=== PATIENT | female | born 1995 | race Hispanic/Latino ===

== ENCOUNTER 2025-01-02 06:21 | Emergency (ER) | payer BC, OTHER ==
[2025-01-02] MEDS ORDERED: Morphine 4 MG/ML VIAL ONE (08:00)
[2025-01-02 08:48] LABS: #Basophils Less than 0.03 10x3/uL (0.0-0.2); #Eosinophils 0.05 10x3/uL (0.0-0.5); #Monocytes 0.44 10x3/uL (0.0-1.1); #Neutrophils 4.34 10x3/uL (1.5-8.4); %Basophils 0.3 % (0.0-2.0); %Eosinophils 0.7 % (0.0-6.0); %Lymphocytes 31.6 % (18.0-47.0); %Monocytes 6.2 % (0.0-10.0); %Neutrophils 60.9 % (40.0-75.0); Hematocrit 34.7 % (34.9-44.5); Hemoglobin 11.4 g/dL (12.0-15.5); Mean Corpuscular HGB CONC 32.9 g/dL (32.0-36.0); Mean Corpuscular Hemoglobin 27.8 pg (27.0-33.0); Mean Corpuscular Volume 84.6 fL (81.6-98.3); Mean Platelet Volume 9.3 fL (7.4-10.4); Platelet Count 288 10x3/uL (150-450); RBC Distribution Width 12.4 % (11.5-14.5); White Blood Cell (WBC) Count 7.12 10x3/uL (3.5-10.5)
[2025-01-02 09:07] LABS: ALT (SGPT) 12 U/L (Less than 34); AST (SGOT) 17 U/L (11-34); Albumin 4.1 g/dL (3.1-4.5); Alkaline Phosphatase 72 U/L (40-110); Anion Gap 13 mmol/L (10-20); BUN (Urea Nitrogen) 11 mg/dL (7.0-18.7); Bilirubin, Total 0.3 mg/dL (0.3-1.2); Calc. Creatinine Clearance 0 mL/min (70-130); Calcium 9.1 mg/dL (7.8-10.44); Carbon Dioxide 21 mmol/L (22-29); Chloride 111 mmol/L (98-107); Estimated GFR 113; Glucose 100 mg/dL (70-105); Protein, Total 7.1 g/dL (6.0-8.3); Sodium 141 mmol/L (136-145)
[2025-01-02] MEDS ORDERED: Midazolam HCl 2 mg/2 ml Vial ONE (11:49)
[2025-01-02] MEDS ORDERED: Fentanyl 100 MCG/2 ML VIAL ONE ×2 (12:01→14:11)
[2025-01-02] MEDS ORDERED: Ketorolac Tromethamine 30 MG (1 mL) VIAL ONE (12:01)
[2025-01-02] MEDS ORDERED: PROPOFOL 20 ML ONE (12:01)
[2025-01-02] MEDS ORDERED: Lidocaine 2% PF 5 ML VIAL ONE (12:01)
[2025-01-02] MEDS ORDERED: Bupivacaine HCl 0.5%/Epinephrine 1:200,000/PF 30 ml Vial ONE (12:02)
[2025-01-02] MEDS ORDERED: Ondansetron PF 4 MG/2 ML Vial ONE (12:02)
[2025-01-02] MEDS ORDERED: Dexamethasone 4 mg/ml Vial ONE (12:02)
[2025-01-02] MEDS ORDERED: SUGAMMADEX SODIUM 200 MG/2 ML VIAL ONE (12:02)
[2025-01-02] MEDS ORDERED: CEFAZOLIN 2 GM VIAL ONE (12:03)
[2025-01-02] MEDS ORDERED: Famotidine/PF 20 mg/2ml Vial ONE (12:07)
[2025-01-02] MEDS ORDERED: PHENYLEPHRINE-NS 100 MCG/ML 10 ML SYRINGE ONE (12:30)
[2025-01-02] MEDS ORDERED: Meperidine HCl/PF 25 MG (1 mL) VIAL ONE (13:31)
[2025-01-02] MEDS ORDERED: Morphine 10 MG/ML VIAL ONE (14:51)
[2025-01-02] MEDS ORDERED: HYDROcodone/Acetaminophen 5/325 mg Tablet ONE (15:47)
== END 2025-01-02 17:00 | disposition home or self-care (01) ==
LOC: CSHERS 06:21
DX: N83.512 Torsion of left ovary and ovarian pedicle (principal); N83.202 Unspecified ovarian cyst, left side; Z87.891 Personal history of nicotine dependence
CPT/HCPCS: 36415; 76856; 80053; 84702; 85025; 86850; 86900; 86901; 96374; J1100; J1885; J2175; J2250; J2270; J2405; J2704; J3010; J3490